=== PATIENT | female | born 1940 | race Caucasian/White ===

== ENCOUNTER 2019-05-30 19:59 | Inpatient (IN) | payer MEDICARE, BC ==
[~2019-05-30] VITALS: Ht 160 cm; Wt 49.9 kg
--- NOTE | 2019-05-30 20:08 | NUR ---
PT [id number]. SOB. PRODUCTIVE COUGH. ELEVATED BP 200/117. PT AAOX3, PLACED ON 4 LITERS O2 NC NOW SATTING 100%. DIMINISHED BREATH SOUNDS NOTED. PT CONNECTED TO THE PIGMENT GRINDER AND POX
[2019-05-30] MEDS ORDERED: methylPREDNISolone SOD SUCC 125 MG/2ML VIAL ONE (20:10)
--- NOTE | 2019-05-30 20:10 | NUR ---
TANKAGE GRINDER AT BEDSIDE FOR BLOOD DRAW
[2019-05-30] MEDS ORDERED: methylPREDNISolone SOD SUCC 125 MG/2ML VIAL IV ONE (20:30)
[2019-05-30 20:33] LABS: BASOPHILS # (AUTO) 0.1 /CMM (0.0-0.2); BASOPHILS % (AUTO) 1.4 % (0.0-2.0); EOSINOPHILS % (AUTO) 0.3 % (0.0-6.0); HEMATOCRIT 54 % (33-45); HEMOGLOBIN 18.1 g/dL (11.5-14.8); LYMPHOCYTES # (AUTO) 1.2 /CMM (0.8-4.8); LYMPHOCYTES % (AUTO) 12.9 % (20.0-44.0); MEAN CORPUSCULAR HGB CONC 34 g/dl (31.0-36.0); MEAN CORPUSCULAR VOLUME 99 fL (82-100); MONOCYTES # (AUTO) 0.5 /CMM (0.1-1.30); MONOCYTES % (AUTO) 5.7 % (2.0-12.0); NEUTROPHILS # (AUTO) 7.4 /CMM (1.8-8.9); NEUTROPHILS % (AUTO) 79.7 % (43.0-81.0); PLATELET COUNT (AUTO) 185 /CMM (150-450); RED BLOOD CELL COUNT(AUTO) 5.44 MIL/uL (4.0-5.2); WHITE BLOOD COUNT (AUTO) 9.3 K/uL (4.3-11.0)
[2019-05-30 20:45] LABS: CALCIUM, SERUM 9.6 mg/dL (8.5-10.1); CARBON DIOXIDE 29 mmol/L (21-32); CHLORIDE 90 mmol/L (98-107); CREATININE 0.6 mg/dL (0.6-1.3); GLUCOSE 118 mg/dL (74-106); POTASSIUM 4.4 mmol/L (3.5-5.1); SODIUM SERUM 126 mmol/L (136-145); UREA NITROGEN, BLOOD 17 mg/dL (7-18)
--- NOTE | 2019-05-30 20:45 | NUR ---
XRAY AT BEDSIDE
--- NOTE | 2019-05-30 20:45 | NUR ---
RT AT BEDSIDE
[2019-05-30 20:51] LABS: APPEARANCE,URINE Clear (CLEAR); BILIRUBIN,URINE Negative (NEGATIVE); BLOOD, URINE Large Ery/uL (NEGATIVE); COLOR,URINE Yellow (YELLOW); KETONES,URINE 15 (NEGATIVE); LEUKOCYTE ESTERASE ,URINE Negative (NEGATIVE); NITRITE, URINE Negative (NEGATIVE); PH,URINE 5.5 (5.0-8.0); PROTEIN,URINE 100 mg/dl (NEGATIVE); UGLUCOSE Negative (NEGATIVE); UROBILINOGEN,URINE 0.2 EU/dL (0.2)
[2019-05-30 20:56] LABS: ABG BASE EXCESS 1.8 mmol/L; ABG OXYGEN SATURATION 98.8 % (92.0-98.5); ABG PH 7.329 (7.350-7.450); COHb 2.6 % (0.5-1.5); MetHb 0.7 % (0.0-1.5); O2Hb 95.5 % (94.0-97.0); SITE, ABG Right Radial; VENT MODE, BG NC 4LPM
[2019-05-30 20:58] LABS: ALANINE AMINOTRANSFERASE 34 U/L (12-78); ALBUMIN 3.9 g/dL (3.4-5.0); ALKALINE PHOSPHATASE 91 U/L (46-116); ASPARTATE AMINOTRANSFERASE 32 U/L (15-37); B-TYPE NATRIURETIC PEPTIDE 901 PG/ML (0-125); BILIRUBIN,DIRECT 0.3 mg/dL (0.0-0.2); BILIRUBIN,TOTAL 0.9 mg/dL (0.2-1.0); TOTAL PROTEIN, SERUM 6.8 g/dL (6.4-8.2)
[2019-05-30 21:00] LABS: BACTERIA,URINE Few /HPF (None Seen); RBC,URINE 21-50 /HPF (0-2); SQUAMOUS EPITHELIAL CELL,UR Moderate /HPF (None Seen)
[2019-05-30] MEDS ORDERED: ALBUTEROL SULFATE INH 18 GM HFA.AER.AD IH PRN (21:00)
[2019-05-30] MEDS ORDERED: ATOR40TA PO (21:12)
[2019-05-30] MEDS ORDERED: ASPI-1498 PO (21:14)
[2019-05-30] MEDS ORDERED: ALBU18HF2 IH (21:15)
[2019-05-30] MEDS ORDERED: TIOT18CA3 INH (21:15)
[2019-05-30] MEDS ORDERED: VALS80TA2 PO (21:18)
[2019-05-30] MEDS ORDERED: AMLO2.5T4 PO (21:19)
[2019-05-30] MEDS ORDERED: MAG HYDROX/AL HYDROX/SIMETH 30 ML UDC PO PRN (21:30)
[2019-05-30] MEDS ORDERED: ZOLPIDEM TARTRATE 5 MG TABLET PO PRN (21:30)
[2019-05-30] MEDS ORDERED: Z GUARD REMEDY 2 OZ OINT TP PRN (21:30)
[2019-05-30] MEDS ORDERED: CLONIDINE HCL 0.1 MG TABLET PO PRN (21:30)
[2019-05-30] MEDS ORDERED: hydrALAZINE HCL IV 20 MG VIAL IV PRN (21:30)
[2019-05-30] MEDS ORDERED: LORAZEPAM 1 MG TABLET PO PRN (21:30)
[2019-05-30] MEDS ORDERED: HYDROCODONE/APAP 5/325MG 1 EACH TABLET PO PRN (21:30)
[2019-05-30] MEDS ORDERED: MAGNESIUM HYDROXIDE 30 ML UDC PO PRN (21:30)
[2019-05-30] MEDS ORDERED: ONDANSETRON HCL/PF 4 MG/2 ML VIAL IVP PRN (21:30)
[2019-05-30 21:42] LABS: LYMPHOCYTES % (MANUAL) 8 % (16-48); MONOCYTES % (MANUAL) 7 % (0-11.0); NEUTROPHILS % (MANUAL) 84 (42-76); REACTIVE LYMPHOCYTES 1 % (0-0)
--- NOTE | 2019-05-30 21:43 | NUR ---
BED ASSIGNMENT 313-1
--- NOTE | 2019-05-30 22:01 | NUR ---
REPORT GIVEN TO HARINI ADKINS
[2019-05-30 22:20] VITALS: BP 146/73
--- NOTE | 2019-05-30 22:25 | NUR ---
PT TRANSFERRED TO ROOM IN STABLE CONDITION W RN AND EMT
[2019-05-30] MEDS: VALSARTAN 80 MG TABLET PO SCH (22:50)
[2019-05-30] MEDS: AMLODIPINE BESYLATE 2.5 MG TABLET PO SCH (22:50)
[2019-05-30 23:00] VITALS: BP 146/73
[2019-05-31] VITALS: BP 124/100
[2019-05-31 00:01] VITALS: BP 124/100
--- NOTE | 2019-05-31 00:03 | NUR ---
admission notes: 2229- RECEIVED REPORT FROM NICK MONTERROSO RN. PT BROUGHT TO THE UNIT VIA STRETCHER, ARRIVED AT 0. PT IS A/O X3 ON 2L OXYGEN VIA NC, NOTED TO BE USING ACCESSORY MUSCLE FOR BREATHING, NOTED TO BE MOUTH BREATHER. ACCDG TO PT, THIS IS HER NORMAL AY OF BREATHING SHE'S BEEN SMOKING FOR A LONG TIME 1/2 PACK A DAY, CLAIMED THAT SHE QUIT TODAY. PT HAS IV ACCESS ON RIGHT AC G 20 AND LEFT WRIST G 20, BOTH PATENT AND FLUSHING WELL, ON SALINE LOCK. PLACED ON TELE MONITORING SINUS TACHYCARDIA HR 104, DENIES ANY PAIN AT THIS TIME. SKIN ASSESSMENT PERFORMED, PLEASE SEE SKIN ASSESSMENT LOG. INVENTORY OF BELONGINGS COMPLETED BY SEBASTIAN SCHULER. PT VERIFIED HER HOME MEDS THAT WAS ENTERED ON MED RECON LIST, AND CLAIMED SHE FORGOT THE OTHERS, UNABLE TO RECALL. VS TAKEN AND RECORDED. ORIENTED TO USE OF CALL LIGHT SYSTEM, HOURLY ROUNDING AND POLICY IN THE HOSPITAL. 2300- DUE MEDS ADMINISTERED, MAINLY FOR BLOOD PRESSURE. 2315- ON REGULAR DIET, COMPLAINED SHE HAVEN'T EAT DINNER AND WAS VERY HUNGRY, PROVIDED WITH EGG SAND WHICH, PUDDING, JELL O AND CRANBERRY JUICE. 2330- SEEN BY DR GARCIA, PERFORMED H&P AND P.E. SAFETY PRECAUTIONS FOR FALL INITIATED, CALL LIGHT IN REACH, WILL CONTINUE MONITORING PT.
[2019-05-31] MEDS ORDERED: IV NS 0.9% 1,000 ML IV SCH (00:30)
[2019-05-31] MEDS: ALBUTEROL FS 2.5 MG/0.5 ML VIAL.NEB NEB PRN ×2 (00:51→04:47)
[2019-05-31 01:00] VITALS: BP 140/88
--- NOTE | 2019-05-31 04:57 | NUR ---
rn notes: due to the behavior of the pt in 313-2, pt was moved to a different room. all belongings sent with pt upon transferring to room 310-1.
[2019-05-31 06:37] LABS: BASOPHILS % (AUTO) 0.5 % (0.0-2.0); HEMATOCRIT 50 % (33-45); HEMOGLOBIN 17.1 g/dL (11.5-14.8); LYMPHOCYTES # (AUTO) 0.5 /CMM (0.8-4.8); LYMPHOCYTES % (AUTO) 12.1 % (20.0-44.0); MEAN CORPUSCULAR HGB CONC 34 g/dl (31.0-36.0); MEAN CORPUSCULAR VOLUME 99 fL (82-100); MONOCYTES # (AUTO) 0.1 /CMM (0.1-1.30); MONOCYTES % (AUTO) 1.4 % (2.0-12.0); NEUTROPHILS # (AUTO) 3.3 /CMM (1.8-8.9); PLATELET COUNT (AUTO) 175 /CMM (150-450); RED BLOOD CELL COUNT(AUTO) 5.08 MIL/uL (4.0-5.2); WHITE BLOOD COUNT (AUTO) 3.8 K/uL (4.3-11.0)
--- NOTE | 2019-05-31 06:51 | NUR ---
end of shift report: pt remains on 2l oxygen via nc, noted productive cough, kept pt on high fowlers position, iv access remains patent and flushing well, no s/s of iv infiltration noted. prn breathing treatment administered by rt. vs remains stable, needs attended, safety precautions for fall remains engaged, call light in reach, will endorse to day rn for continuity of care.
[2019-05-31 07:02] LABS: CALCIUM, SERUM 9.5 mg/dL (8.5-10.1); CREATININE 0.8 mg/dL (0.6-1.3); PHOSPHORUS 4.4 mg/dL (2.5-4.9); POTASSIUM 4.2 mmol/L (3.5-5.1)
[2019-05-31 08:00] VITALS: BP 127/72
[2019-05-31] MEDS ORDERED: TIOTROPIUM BROMIDE 6 CAP/BOX CAP.W.DEV IH SCH (09:00)
[2019-05-31] MEDS: methylPREDNISolone SOD SUCC 125 MG/2ML VIAL IV SCH ×4 (09:08→20:17)
[2019-05-31] MEDS: AMLODIPINE BESYLATE 2.5 MG TABLET PO SCH (09:08)
[2019-05-31] MEDS: VALSARTAN 80 MG TABLET PO SCH (09:08)
[2019-05-31] MEDS: ASPIRIN EC 81 MG TABLET.DR PO SCH (09:08)
[2019-05-31] MEDS: ATORVASTATIN 40 MG TABLET PO SCH (09:08)
--- NOTE | 2019-05-31 10:29 | NUR ---
WOUND CARE CONSULT: PT PRESENTS WITH SACRAL INTACT DEEP TISSUE INJURY PRESENT ON ADMISSION. RECOMMENDATIONS MADE FOR SKIN PROTECTION AND WOUND CARE. DISCUSSED WITH NURSING STAFF. WILL SEE PRN. JAMES IN AGREEMENT WITH PLAN OF CARE. CURRENT DANNY SCORE IS 15. Addendum: 05/31/19 at 1030 by JORDYN VERMA WNDNU Amended: Links added.
[2019-05-31] MEDS: IPRATROPIUM NEB FS 0.5 MG/2.5 ML AMPUL.NEB NEB SCH ×3 (11:26→18:57)
[2019-05-31 16:00] VITALS: BP 129/63
--- NOTE | 2019-05-31 18:58 | NUR ---
pt on 2l oxygen via nc, noted productive cough, kept pt on high fowlers position, iv fluid running as ordered. prn breathing treatment administered by RT. VS remains stable,all needs attended, safety precautions for fall remains engaged, call light in reach, will endorse to night rn for continuity of care.
[2019-05-31] MEDS: IV NS 0.9% 1,000 ML IV PRN (20:15)
[2019-05-31] MEDS: ACETAMINOPHEN 325 MG TABLET PO PRN (20:16)
[2019-05-31 20:41] VITALS: BP 107/43
[2019-06-01] MEDS: IPRATROPIUM NEB FS 0.5 MG/2.5 ML AMPUL.NEB NEB SCH ×4 (00:58→19:54)
--- NOTE | 2019-06-01 06:48 | NUR ---
RN PM CLOSING NOTE PT SITTING IN BED NO APPARENT DISTRESS. PT ON 2LNC OXYGEN. PATIENT HAS PURSED LIP BREATHING BUT DENIES SOB. PATIENT IS WORKING ON PUTTING HER DENTURES IN. PATIENT HAS BEEN HAVING A PRODUCTIVE COUGH THROUGHOUT THE NIGHT, SPENT MOST OF THE NIGHT IN HIGH FOWLERS POSIITON IV FLUID NS RUNNING AT 75 ML PER HOUR TO LEFT WRIST #20 SOME BLEEDING UNDER DRESSING NOTED, DRESSING CHANGED AND NO LEAKING OR BLEEDING SEEN AFTER CHANGE. SAFETY MEASURES IN PLACE BED ALARM ACTIVE BED DOWN AND LOCKED [id number] ENDORSE TO DAY SHIFT FOR SCOTT.
[2019-06-01 07:43] LABS: CREATININE 0.8 mg/dL (0.6-1.3); MAGNESIUM 1.9 mg/dL (1.8-2.4); PHOSPHORUS 3.1 mg/dL (2.5-4.9); POTASSIUM 4.1 mmol/L (3.5-5.1)
[2019-06-01 07:47] LABS: OSMOLALITY,URINE 771 mOS/kg (340-1090)
[2019-06-01 07:56] LABS: URINE SODIUM, RANDOM 6 mmol/l (40-220)
[2019-06-01 08:00] VITALS: BP 132/53
[2019-06-01 08:09] LABS: THYROID STIMULATING HORMONE 1.283 uIU/mL (0.358-3.74); URIC ACID 2.8 mg/dL (2.6-7.2)
[2019-06-01] MEDS: VALSARTAN 80 MG TABLET PO SCH (09:06)
[2019-06-01] MEDS: ATORVASTATIN 40 MG TABLET PO SCH (09:06)
[2019-06-01] MEDS: ASPIRIN EC 81 MG TABLET.DR PO SCH (09:07)
[2019-06-01] MEDS: AMLODIPINE BESYLATE 2.5 MG TABLET PO SCH (09:07)
[2019-06-01] MEDS: methylPREDNISolone SOD SUCC 125 MG/2ML VIAL IV SCH ×4 (09:07→20:14)
[2019-06-01] MEDS: ALBUTEROL FS 2.5 MG/0.5 ML VIAL.NEB NEB PRN (13:12)
[2019-06-01] MEDS: CLOTRIMAZOLE 1% 15 GM TUBE TP SCH ×2 (13:13→17:14)
[2019-06-01 16:00] VITALS: BP 126/74
--- NOTE | 2019-06-01 18:48 | NUR ---
pt remains on 2l oxygen via nc, noted less coughing, iv fluid running as ordered. prn breathing treatment administered by RT. VS remains stable,all needs attended, safety precautions for fall remains engaged, call light in reach, will endorse to night rn for continuity of care.
--- NOTE | 2019-06-01 19:15 | NUR ---
RN PM OPENING NOTE BEDSIDE REPORT RECIEVED FROM TOSHIA SCHULER. PT ON 2LNC PATIENT DENIES SOB. PATIENT IN NO PRESPIRATORY DISTRESS BREATHING IS EVEN AND UNLABORED. PATIENT STILL REPORTS SHE HAS A PRODUCTIVE COUGH. PATIENT HAS COMPLAINTES OF BEING CONSTIPATED STAES, "i HAD A BM TODAY BUT IT CAME OUT LITTLE VANESA." SAFETY PRECAUTIONS IN PLACE BED DOWN LOCKED SRX2 CALL LIGHT IN REACH WILL CONT TO MONITOR.
[2019-06-01 20:14] VITALS: BP 139/66
[2019-06-01] MEDS: ACETAMINOPHEN 325 MG TABLET PO PRN (20:14)
[2019-06-02] MEDS: IPRATROPIUM NEB FS 0.5 MG/2.5 ML AMPUL.NEB NEB SCH ×3 (00:56→12:40)
[2019-06-02] MEDS: IV NS 0.9% 1,000 ML IV PRN (06:16)
[2019-06-02 08:00] VITALS: BP 149/65
--- NOTE | 2019-06-02 08:00 | NUR ---
MS RN OPENING NOTE RECEIVED PT IN BED, AWAKE, ALERT AND ORIENTED X 3. NO CARDIAC OR RESP DISTRESS NOTED. NO SOB NOTED. BREATHING EVEN AND UNLABORED. SATURATING WELL ON 2L OF O2 VIA NC. IV ACCESS NOTED ON L FOREARM G20 WITH IV FLUID NS RUNNING AT 75ML/HR. NO S/S OF INFECTION OR INFILTRATION NOTED ON IV SITE. IV SITE INTACT AND PATENT. SAFETY PRECAUTIONS IN PLACE BED ALARM ON. BED LOCKED AND IN LOW POSITION. SIDE RAILS UP. WILL CONT TO MONITOR.
[2019-06-02] MEDS: ASPIRIN EC 81 MG TABLET.DR PO SCH (08:56)
[2019-06-02] MEDS: ATORVASTATIN 40 MG TABLET PO SCH (08:56)
[2019-06-02] MEDS: AMLODIPINE BESYLATE 2.5 MG TABLET PO SCH (08:56)
[2019-06-02] MEDS: VALSARTAN 80 MG TABLET PO SCH (08:56)
[2019-06-02] MEDS: methylPREDNISolone SOD SUCC 125 MG/2ML VIAL IV SCH ×2 (08:56→12:17)
[2019-06-02] MEDS: CLOTRIMAZOLE 1% 15 GM TUBE TP SCH (08:57)
[2019-06-02] MEDS ORDERED: PRED50TA PO (11:05)
[2019-06-02 12:00] VITALS: BP 144/72
--- NOTE | 2019-06-02 15:45 | NUR ---
D/C TO SNF PT WAS DISCHARGED TO [facility], REPORT GIVEN TO ISAURO SCHULER AT THE [facility]. PT WAS PICKED UP VIA AMBULANCE WITH 3 STERILIZATION TECH. BODY CHECK DONE, PICTURES TAKEN. WOUND TX PROVIDED. NO CARDIAC OR RESPIPRATORY DISTRESS NOTED. VS STABLE. PT IN STABLE CONDITION UPON D/C.
== END 2019-06-02 15:15 | DRG 189 ==
LOC: ER 20:00 → TELE 21:48 → MED 05-31 00:03
PROVIDERS: ADMIT Internal Medicine; ATTEND Internal Medicine
DX: J96.01 Acute respiratory failure with hypoxia (principal); E43 Unspecified severe protein-calorie malnutrition; J44.1 Chronic obstructive pulmonary disease with (acute) exacerbation; E87.1 Hypo-osmolality and hyponatremia; R64 Cachexia; E78.5 Hyperlipidemia, unspecified; I10 Essential (primary) hypertension; N39.3 Stress incontinence (female) (male); Z98.890 Other specified postprocedural states; Z98.1 Arthrodesis status; Z90.710 Acquired absence of both cervix and uterus; F17.200 Nicotine dependence, unspecified, uncomplicated; E86.1 Hypovolemia
CPT/HCPCS: 36415; 36600; 71045-TC; 80048-TC; 80076-TC; 81000-TC; 82803-TC; 83605-TC; 83735-TC; 83880; 83935-TC; 84100-TC; 84300-TC; 84443-TC; 84484-TC; 84550-TC; 85025-TC; 85730-TC; 86850-TC; 87040-TC; 87081-TC; 87086-TC; 87186-TC; G0378; J2930; J7030

== ENCOUNTER 2024-04-06 02:26 | Inpatient (IN) | payer MEDICARE, BC ==
[~2024-04-06] VITALS: Ht 157.5 cm; Wt 50.1 kg
[~2024-04-06 02:26] MED LIST: ALBU18HF2 IH; AMLO2.5T4 PO; ASPI-1498 PO; ATOR40TA PO; PRED50TA PO; TIOT18CA3 INH; VALS80TA2 PO
[2024-04-06] MEDS ORDERED: methylPREDNISolone SOD SUCC 125 MG/2ML VIAL ONE (02:39)
[2024-04-06] MEDS: IV NS 0.9% 1,000 ML BAG IV ONE ×2 (02:49→05:07)
[2024-04-06] MEDS: methylPREDNISolone SOD SUCC 125 MG/2ML VIAL IV ONE (02:50)
[2024-04-06] MEDS: IPRATROPIUM NEB FS 0.5 MG/2.5 ML AMPUL.NEB NEB ONE (02:51)
[2024-04-06] MEDS: ALBUTEROL FS 2.5 MG/3 ML VIAL.NEB NEB ONE (02:51)
[2024-04-06 02:55] LABS: BASOPHILS % (AUTO) 0.4 % (0.0-2.0); EOSINOPHILS # (AUTO) 0.1 K/uL (0.0-0.7); HEMATOCRIT 48 % (33-45); HEMOGLOBIN 16.1 g/dL (11.5-14.8); MEAN CORPUSCULAR HEMOGLOBIN 32 PG (26.0-33.0); MEAN CORPUSCULAR HGB CONC 33 g/dl (31.0-36.0); MEAN CORPUSCULAR VOLUME 97 fL (82-100); MONOCYTES % (AUTO) 15.5 % (2.0-12.0); NEUTROPHILS # (AUTO) 3.5 K/uL (1.8-8.9); NEUTROPHILS % (AUTO) 52.1 % (43.0-81.0); PLATELET COUNT (AUTO) 200 K/uL (150-450); RED BLOOD CELL COUNT(AUTO) 4.99 MIL/uL (4.0-5.2); RED CELL DISTRIBUTION WIDTH 13.9 % (11.5-15.0); WHITE BLOOD COUNT (AUTO) 6.8 K/uL (4.3-11.0)
[2024-04-06] MEDS ORDERED: ALBUTEROL FS 2.5 MG/3 ML VIAL.NEB ONE (02:58)
[2024-04-06] MEDS ORDERED: IPRATROPIUM NEB FS 0.5 MG/2.5 ML AMPUL.NEB ONE (02:58)
[2024-04-06 03:20] VITALS: O2SAT 95
[2024-04-06 03:30] VITALS: O2SAT 98
[2024-04-06 04:07] LABS: CALCIUM, SERUM 9.7 mg/dL (8.5-10.1); CREATININE 1.2 mg/dL (0.6-1.3)
[2024-04-06 04:12] LABS: ALBUMIN 3.1 g/dL (3.4-5.0); BILIRUBIN,DIRECT 0.2 mg/dL (0.0-0.2); BILIRUBIN,TOTAL 0.6 mg/dL (0.2-1.0); TOTAL PROTEIN, SERUM 6.9 g/dL (6.4-8.2)
[2024-04-06] MEDS ORDERED: CEFTRIAXONE 1GM BAG (ER ONLY) 50 ML IV ONE (05:00)
[2024-04-06 05:02] LABS: LACTIC ACID 1.6 mmol/L (0.4-2.0)
[2024-04-06] MEDS: CEFTRIAXONE 1 G in IV D5W 50 ML IV ONE (05:07)
[2024-04-06 05:32] LABS: LYMPHOCYTES % (MANUAL) 34 % (16-48); MONOCYTES % (MANUAL) 12 % (0-11.0); NEUTROPHILS % (MANUAL) 54 (42-76)
[2024-04-06 05:33] LABS: PLATELET ESTIMATE ADEQUATE
[2024-04-06 05:57] LABS: APPEARANCE,URINE TURBID (CLEAR); BILIRUBIN,URINE 1+ (NEGATIVE); BLOOD, URINE 3+ Ery/uL (NEGATIVE); COLOR,URINE RED (YELLOW); KETONES,URINE NEGATIVE (NEGATIVE); LEUKOCYTE ESTERASE ,URINE TRACE (NEGATIVE); NITRITE, URINE POSITIVE (NEGATIVE); PROTEIN,URINE 3+ mg/dl (NEGATIVE); UGLUCOSE NEGATIVE (NEGATIVE); UROBILINOGEN,URINE 0.2 EU/dL (0.2)
[2024-04-06] MEDS ORDERED: ONDANSETRON HCL/PF 4 MG/2 ML VIAL IVP PRN (06:00)
[2024-04-06] MEDS ORDERED: MAGNESIUM HYDROXIDE 30 ML UDC PO PRN (06:00)
[2024-04-06] MEDS ORDERED: MAG HYDROX/AL HYDROX/SIMETH 30 ML UDC PO PRN (06:00)
[2024-04-06] MEDS ORDERED: Z GUARD REMEDY 4 OZ OINT TP PRN (06:00)
[2024-04-06] MEDS ORDERED: ACETAMINOPHEN 325 MG TABLET PO PRN (06:00)
[2024-04-06 06:08] LABS: RBC,URINE TOO NUMEROUS TO COUN /HPF (0-2)
[2024-04-06 06:10] LABS: ADD URINE CULTURE YES; BACTERIA,URINE Few /HPF (None Seen); SQUAMOUS EPITHELIAL CELL,UR Few /HPF (None Seen)
[2024-04-06 06:21] VITALS: O2SAT 98
[2024-04-06] MEDS ORDERED: ALBUTEROL FS 2.5 MG/0.5 ML VIAL.NEB NEB PRN (06:30)
[2024-04-06] MEDS ORDERED: IPRATROPIUM NEB FS 0.5 MG/2.5 ML AMPUL.NEB NEB PRN (06:30)
[2024-04-06] MEDS: PSYLLIUM SEED 1 PKT PACKET PO SCH (09:00)
[2024-04-06] MEDS: VALSARTAN 80 MG TABLET PO SCH (09:00)
[2024-04-06] MEDS: AMLODIPINE BESYLATE 2.5 MG TABLET PO SCH (09:00)
[2024-04-06] MEDS ORDERED: VITAMIN D3 PO (10:40)
[2024-04-06] MEDS ORDERED: AMLO-212 PO (10:40)
[2024-04-06] MEDS: ATORVASTATIN 40 MG TABLET PO SCH (10:54)
[2024-04-06] MEDS: PANTOPRAZOLE 40 MG VIAL IV SCH (10:54)
[2024-04-06] MEDS: methylPREDNISolone SOD SUCC 40 MG/ML VIAL IV SCH (12:43)
[2024-04-06 16:00] VITALS: BP 131/39; TEMP 98.2; O2SAT 96
[2024-04-06 20:00] VITALS: BP 111/52; TEMP 98.1; O2SAT 94
[2024-04-06] MEDS: SENNOSIDES 8.6 MG TABLET PO SCH (21:44)
[2024-04-07] VITALS (8 sets, daily range): BP systolic 106–132; BP diastolic 39–81; TEMP 97.7–97.9; O2SAT 93–98
[2024-04-07] MEDS: CEFTRIAXONE 1 G in IV D5W 50 ML IV SCH (05:14)
[2024-04-07 07:32] LABS: CALCIUM, SERUM 8.9 mg/dL (8.5-10.1); CREATININE 1.2 mg/dL (0.6-1.3); MAGNESIUM 2.2 mg/dL (1.8-2.4); PHOSPHORUS 2.9 mg/dL (2.5-4.9); POTASSIUM 4.8 mmol/L (3.5-5.1)
[2024-04-07 07:43] LABS: BASOPHILS % (AUTO) 0.1 % (0.0-2.0); HEMATOCRIT 38 % (33-45); HEMOGLOBIN 12.7 g/dL (11.5-14.8); LYMPHOCYTES # (AUTO) 0.8 K/uL (0.8-4.8); LYMPHOCYTES % (AUTO) 13.5 % (20.0-44.0); MEAN CORPUSCULAR HEMOGLOBIN 32 PG (26.0-33.0); MEAN CORPUSCULAR HGB CONC 33 g/dl (31.0-36.0); MEAN CORPUSCULAR VOLUME 95 fL (82-100); MONOCYTES # (AUTO) 0.5 K/uL (0.1-1.30); MONOCYTES % (AUTO) 7.7 % (2.0-12.0); NEUTROPHILS # (AUTO) 4.8 K/uL (1.8-8.9); NEUTROPHILS % (AUTO) 78.7 % (43.0-81.0); PLATELET COUNT (AUTO) 225 K/uL (150-450); RED BLOOD CELL COUNT(AUTO) 3.99 MIL/uL (4.0-5.2); RED CELL DISTRIBUTION WIDTH 14.2 % (11.5-15.0); WHITE BLOOD COUNT (AUTO) 6.1 K/uL (4.3-11.0)
[2024-04-07] MEDS: PANTOPRAZOLE 40 MG TABLET.DR PO SCH (09:18)
[2024-04-07] MEDS: methylPREDNISolone SOD SUCC 40 MG/ML VIAL IV SCH (13:06)
[2024-04-07] MEDS: IPRATROPIUM NEB FS 0.5 MG/2.5 ML AMPUL.NEB NEB SCH (20:33)
[2024-04-08] VITALS (7 sets, daily range): BP systolic 95–105; BP diastolic 43–54; TEMP 97.3–97.4; O2SAT 92–99
[2024-04-08 07:14] LABS: BASOPHILS % (AUTO) 0.2 % (0.0-2.0); HEMATOCRIT 35 % (33-45); LYMPHOCYTES # (AUTO) 1.1 K/uL (0.8-4.8); MEAN CORPUSCULAR HEMOGLOBIN 33 PG (26.0-33.0); MEAN CORPUSCULAR HGB CONC 34 g/dl (31.0-36.0); MEAN CORPUSCULAR VOLUME 97 fL (82-100); MONOCYTES # (AUTO) 0.9 K/uL (0.1-1.30); MONOCYTES % (AUTO) 9.7 % (2.0-12.0); NEUTROPHILS # (AUTO) 6.8 K/uL (1.8-8.9); NEUTROPHILS % (AUTO) 77.1 % (43.0-81.0); PLATELET COUNT (AUTO) 210 K/uL (150-450); RED BLOOD CELL COUNT(AUTO) 3.66 MIL/uL (4.0-5.2); RED CELL DISTRIBUTION WIDTH 14.1 % (11.5-15.0); WHITE BLOOD COUNT (AUTO) 8.8 K/uL (4.3-11.0)
[2024-04-08 07:16] LABS: ALBUMIN 2.3 g/dL (3.4-5.0); BILIRUBIN,TOTAL 0.2 mg/dL (0.2-1.0); CALCIUM, SERUM 8.8 mg/dL (8.5-10.1); CREATININE 0.9 mg/dL (0.6-1.3); MAGNESIUM 2.3 mg/dL (1.8-2.4); PHOSPHORUS 3.2 mg/dL (2.5-4.9); POTASSIUM 4.6 mmol/L (3.5-5.1); TOTAL PROTEIN, SERUM 5.5 g/dL (6.4-8.2)
[2024-04-08 17:25] LABS: HEMOGLOBIN 12.3 g/dL (11.5-14.8)
[2024-04-09 02:30] VITALS: BP 114/49; TEMP 97.5; O2SAT 94
[2024-04-09 06:53] LABS: HEMATOCRIT 34 % (33-45); HEMOGLOBIN 11.4 g/dL (11.5-14.8); LYMPHOCYTES # (AUTO) 1.6 K/uL (0.8-4.8); LYMPHOCYTES % (AUTO) 18.3 % (20.0-44.0); MEAN CORPUSCULAR HEMOGLOBIN 32 PG (26.0-33.0); MEAN CORPUSCULAR HGB CONC 33 g/dl (31.0-36.0); MEAN CORPUSCULAR VOLUME 96 fL (82-100); MONOCYTES # (AUTO) 1.1 K/uL (0.1-1.30); MONOCYTES % (AUTO) 11.9 % (2.0-12.0); NEUTROPHILS # (AUTO) 6.2 K/uL (1.8-8.9); NEUTROPHILS % (AUTO) 69.8 % (43.0-81.0); PLATELET COUNT (AUTO) 224 K/uL (150-450); RED BLOOD CELL COUNT(AUTO) 3.56 MIL/uL (4.0-5.2); RED CELL DISTRIBUTION WIDTH 13.8 % (11.5-15.0); WHITE BLOOD COUNT (AUTO) 8.9 K/uL (4.3-11.0)
[2024-04-09 06:56] LABS: CALCIUM, SERUM 9.2 mg/dL (8.5-10.1); CREATININE 0.9 mg/dL (0.6-1.3); POTASSIUM 4.6 mmol/L (3.5-5.1)
[2024-04-09 07:49] VITALS: O2SAT 93
[2024-04-09 09:00] VITALS: BP 95/70
[2024-04-10 08:08] LABS: PTH, INTACT 28 pg/mL (15-65)
== END 2024-04-09 17:42 | DRG 690 ==
LOC: ER 02:28 → MED 09:03
PROVIDERS: ADMIT Nurse Practitioner Acute Care; ATTEND Nurse Practitioner Acute Care
DX: N30.91 Cystitis, unspecified with hematuria (principal); J44.1 Chronic obstructive pulmonary disease with (acute) exacerbation; N17.9 Acute kidney failure, unspecified; I73.9 Peripheral vascular disease, unspecified; E78.5 Hyperlipidemia, unspecified; K59.00 Constipation, unspecified; M89.8X9 Other specified disorders of bone, unspecified site; N18.9 Chronic kidney disease, unspecified; R53.1 Weakness; Z71.6 Tobacco abuse counseling; F17.210 Nicotine dependence, cigarettes, uncomplicated; I12.9 Hypertensive chronic kidney disease with stage 1 through stage 4 chronic kidney disease, or unspecified chronic kidney disease; Z90.710 Acquired absence of both cervix and uterus; E86.9 Volume depletion, unspecified; Z95.828 Presence of other vascular implants and grafts; R20.0 Anesthesia of skin; N93.9 Abnormal uterine and vaginal bleeding, unspecified; I70.8 Atherosclerosis of other arteries
CPT/HCPCS: 36415; 71045-TC; 76770-TC; 80048-TC; 80053-TC; 80076-TC; 81001; 82550-TC; 83605-TC; 83735-TC; 83970; 84100-TC; 84155; 84165; 85025-TC; 85027-TC; 87086-TC; 94760-TC; 94799-TC; 97110-TC; 97116-TC; 97530-TC; 97535-TC; A4217; A4223; G0378; J0696; J2470; J2919; J7030; J7050; J7060